=== PATIENT | female | born 1970 | race Caucasian/White ===

== ENCOUNTER 2016-09-28 18:47 | Emergency (ER) | payer MEDICAID ==
[~2016-09-28] VITALS: Ht 157.5 cm; Wt 99.8 kg
[~2016-09-28 18:47] MED LIST: BACL10TA; GLYB3TAB; LEVO75TA47; METF-312; NOR10T; SITA50TA
[2016-09-28 19:05] VITALS: BP 138/81
== END 2016-09-28 22:59 | disposition left against medical advice (07) ==
LOC: EDUNIT# 18:47 → ER 18:57
DX: F10.10 Alcohol abuse, uncomplicated (principal); Z53.21 Procedure and treatment not carried out due to patient leaving prior to being seen by health care provider
CPT/HCPCS: 82962; 93005

== ENCOUNTER 2018-06-15 18:57 | Emergency (ER) | payer MEDICAID ==
[~2018-06-15] VITALS: Ht 157.5 cm; Wt 105.7 kg
[~2018-06-15 18:57] MED LIST changes: -GLYB3TAB; +GLYB3TAB3; -METF-312; +METF-370
[2018-06-15] MEDS ORDERED: SODIUM CHLORIDE 0.9% 1,000 ML IVB ONE (19:13)
[2018-06-15 19:44] LABS: Urine Bacteria FEW /hpf (None Seen); Urine Blood Negative /uL (Negative); Urine Specific Gravity 1.029 (1.001-1.035); Urine WBC 1 /hpf (0 - 5)
[2018-06-15 19:46] LABS: Basophils # (auto) 0.1 uL; Basophils % (auto) 1.3 % (0.0-2.0); Eosinophils # (auto) 0.2 uL; Eosinophils % (auto) 1.9 % (0.0-7.0); Hematocrit 36.2 % (36.0-46.0); Hemoglobin 12.3 g/dL (12.2-16.2); Lymphocytes # (auto) 2.9 uL; Lymphocytes % (auto) 32.1 % (10.0-50.0); Mean Corpuscular Hemoglobin 32.4 pg (28.0-32.0); Mean Corpuscular Hgb Conc. 34.1 g/dL (32.0-36.0); Mean Corpuscular Volume 95.1 fL (80.0-100.0); Monocytes # (auto) 0.5 uL; Monocytes % (auto) 5.9 % (0.0-12.0); Neutrophils # (auto) 5.4 uL; Neutrophils % (auto) 58.8 % (37.0-80.0); Platelet Count (auto) 312 10^3/uL (140-450); Red Blood Cells 3.81 10^6/uL (4.0-5.20); Red Cell Distribution Width 13.4 % (11.8-14.3); White Blood Cell 9.1 10^3/uL (4.4-10.8)
[2018-06-15 19:57] LABS: INR 0.88 (0.9-1.15); Partial Thromboplastin Time 25.5 sec (23.78-33.04); Prothrombin Time 9.5 sec (9.27-12.13)
[2018-06-15 20:11] LABS: Alanine Aminotransferase 21 U/L (13-56); Albumin 3.2 g/dL (3.4-5.0); Anion Gap 6 (5-15); Aspartate Aminotransferase 13 U/L (15-37); BUN/Creatinine Ratio 16.1; Blood Urea Nitrogen 18 mg/dL (7-18); Calcium 8.5 mg/dL (8.5-10.1); Carbon Dioxide 27 mmol/L (21-32); Chloride 103 mmol/L (98-107); GFR African American 67 mL/min; GFR Non-African American 55 mL/min; Glucose 343 mg/dL (74-106); Magnesium 1.7 mg/dL (1.6-2.6); Potassium 4.2 mmol/L (3.5-5.1); Sodium 136 mmol/L (136-145)
[2018-06-15 20:14] LABS: Alkaline Phosphatase 162 U/L (45-117); Bilirubin, Total < 0.1 mg/dL (0.2-1.0); Total Protein 7.6 g/dL (6.4-8.2)
[2018-06-15] MEDS ORDERED: InsuLIN REG 1unit/0.01ml Soln (100units/ml) SC ONE (20:45)
[2018-06-15 21:30] VITALS: BP 123/78
[2018-06-15] MEDS ORDERED: HYDROcodone-ACET 5/325MG TAB PO ONE (22:15)
[2018-06-15] MEDS ORDERED: CLINDAMYCIN 600MG IV 50 ML IV ONE (22:15)
== END 2018-06-15 23:25 | disposition home or self-care (01) ==
LOC: ER 19:01
DX: E11.65 Type 2 diabetes mellitus with hyperglycemia (principal); E78.5 Hyperlipidemia, unspecified; I10 Essential (primary) hypertension; E07.89 Other specified disorders of thyroid; F17.210 Nicotine dependence, cigarettes, uncomplicated; Z98.51 Tubal ligation status
CPT/HCPCS: 36415; 71045; 80053; 81001; 82962; 83735; 84702; 85025; 85610; 85730; 94761; 96361; 96365; 96372; 99284; J1815; J3490

== ENCOUNTER 2018-06-23 13:23 | Emergency (ER) | payer MEDICAID ==
[~2018-06-23] VITALS: Ht 154.9 cm; Wt 103.4 kg
[2018-06-23 14:13] LABS: Basophils # (auto) 0.1 uL; Basophils % (auto) 0.8 % (0.0-2.0); Eosinophils # (auto) 0.1 uL; Eosinophils % (auto) 1.3 % (0.0-7.0); Hematocrit 36.4 % (36.0-46.0); Hemoglobin 12.3 g/dL (12.2-16.2); Lymphocytes # (auto) 1.8 uL; Lymphocytes % (auto) 25.5 % (10.0-50.0); Mean Corpuscular Hemoglobin 31.6 pg (28.0-32.0); Mean Corpuscular Hgb Conc. 33.8 g/dL (32.0-36.0); Mean Corpuscular Volume 93.5 fL (80.0-100.0); Monocytes # (auto) 0.3 uL; Monocytes % (auto) 4.6 % (0.0-12.0); Neutrophils # (auto) 4.9 uL; Neutrophils % (auto) 67.8 % (37.0-80.0); Platelet Count (auto) 290 10^3/uL (140-450); White Blood Cell 7.2 10^3/uL (4.4-10.8)
[2018-06-23 14:32] LABS: Albumin 3.3 g/dL (3.4-5.0); BUN/Creatinine Ratio 20.2; Calcium 8.4 mg/dL (8.5-10.1); Potassium 4.2 mmol/L (3.5-5.1)
[2018-06-23 14:36] LABS: Bilirubin, Total 0.2 mg/dL (0.2-1.0); Total Protein 7.8 g/dL (6.4-8.2)
[2018-06-23 16:25] LABS: Urine Bacteria MOD /hpf (None Seen); Urine Blood Negative /uL (Negative); Urine Hyaline Cast MOD /lpf (0 - 2); Urine Mucus FEW (None Seen); Urine Specific Gravity 1.024 (1.001-1.035); Urine WBC 11 /hpf (0 - 5)
[2018-06-23 17:08] VITALS: BP 102/78
[2018-06-23] MEDS ORDERED: cefTRIAXone 1GM/50ML D5W 50 ML IV ONE (17:15)
[2018-06-23] MEDS ORDERED: SODIUM CHLORIDE 0.9% 1,000 ML IV ONE (17:15)
[2018-06-23] MEDS ORDERED: diphenhdrAMINE HCL 50 MG/1 ML VL IV ONE (17:15)
[2018-06-23] MEDS ORDERED: ALPRAZolam 0.5 MG TAB PO ONE (17:30)
== END 2018-06-23 18:58 | disposition home or self-care (01) ==
LOC: ER 13:23
DX: N39.0 Urinary tract infection, site not specified (principal); E11.65 Type 2 diabetes mellitus with hyperglycemia; N28.9 Disorder of kidney and ureter, unspecified; E11.9 Type 2 diabetes mellitus without complications; E78.5 Hyperlipidemia, unspecified; I10 Essential (primary) hypertension; E07.89 Other specified disorders of thyroid; F17.210 Nicotine dependence, cigarettes, uncomplicated; Z98.51 Tubal ligation status
CPT/HCPCS: 36415; 80053; 81001; 82962; 85025; 96365; 99283; J0696; J7030

== ENCOUNTER 2018-08-09 12:51 | Emergency (ER) | payer MEDICAID, OTHER ==
[~2018-08-09] VITALS: Ht 180.3 cm; Wt 107.5 kg
[2018-08-09 13:12] VITALS: BP 123/91
== END 2018-08-09 15:10 | disposition home or self-care (01) ==
LOC: EDBD 12:56 → EDUNIT# 12:56 → ER 12:56
DX: R21 Rash and other nonspecific skin eruption (principal); E11.9 Type 2 diabetes mellitus without complications; E78.5 Hyperlipidemia, unspecified; Z86.39 Personal history of other endocrine, nutritional and metabolic disease
CPT/HCPCS: 82962

== ENCOUNTER 2018-10-29 13:16 | Inpatient (IN) | payer MEDICAID ==
[~2018-10-29] VITALS: Ht 154.9 cm; Wt 103.9 kg
[2018-10-29] MEDS ORDERED: SODIUM CHLORIDE 0.9% 1,000 ML IV ONE (13:41)
[2018-10-29 14:26] LABS: Basophils # (auto) 0.1 uL; Basophils % (auto) 0.8 % (0.0-2.0); Eosinophils # (auto) 0.1 uL; Eosinophils % (auto) 0.7 % (0.0-7.0); Hematocrit 37.5 % (36.0-46.0); Hemoglobin 12.9 g/dL (12.2-16.2); Lymphocytes # (auto) 2.5 uL; Lymphocytes % (auto) 28.1 % (10.0-50.0); Mean Corpuscular Hemoglobin 31.6 pg (28.0-32.0); Mean Corpuscular Hgb Conc. 34.5 g/dL (32.0-36.0); Mean Corpuscular Volume 91.5 fL (80.0-100.0); Monocytes # (auto) 0.5 uL; Monocytes % (auto) 5.9 % (0.0-12.0); Neutrophils # (auto) 5.7 uL; Neutrophils % (auto) 64.5 % (37.0-80.0); Platelet Count (auto) 258 10^3/uL (140-450); Red Cell Distribution Width 14.4 % (11.8-14.3); White Blood Cell 8.9 10^3/uL (4.4-10.8)
[2018-10-29 14:32] LABS: INR 0.9 (0.9-1.15); Partial Thromboplastin Time 23.6 sec (23.78-33.04); Prothrombin Time 9.7 sec (9.27-12.13)
[2018-10-29 14:37] LABS: Albumin 3.5 g/dL (3.4-5.0); Calcium 8.8 mg/dL (8.5-10.1); Potassium 3.9 mmol/L (3.5-5.1)
[2018-10-29 14:38] LABS: Magnesium 1.8 mg/dL (1.6-2.6)
[2018-10-29 14:39] LABS: Bilirubin, Total 0.4 mg/dL (0.2-1.0); Total Protein 7.6 g/dL (6.4-8.2)
[2018-10-29] MEDS ORDERED: SODIUM CHLORIDE 0.9% 2,000 ML IV ONE (18:00)
[2018-10-29] MEDS ORDERED: InsuLIN REG 1unit/0.01ml Soln (100units/ml) IV ONE (18:15)
[2018-10-29] MEDS ORDERED: NITROGLYCERIN 0.4 MG SL TAB SL PRN (18:15)
[2018-10-29] MEDS ORDERED: ACETAMINOPHEN 500 MG TAB PO PRN (18:15)
[2018-10-29] MEDS ORDERED: DEXTROSE (50%) 50ML SYRG IV PRN (18:15)
[2018-10-29] MEDS ORDERED: LABETALOL HCL 5 MG/ML ML 20ML VIAL IV PRN (18:15)
[2018-10-29] MEDS ORDERED: MORPHINE SULF INJ 2 MG/ML SYRINGE 1ML IV PRN (18:15)
[2018-10-29] MEDS: SOD CHL 0.45% WITH 20MEQ KCL 1,000 ML IV SCH (18:56)
[2018-10-29] MEDS: MORPHINE SULF INJ 2 MG/ML SYRINGE 1ML IV PRN (19:32)
[2018-10-29] MEDS: ONDANSETRON HCL 4 MG/2 ML VIAL IV PRN (19:32)
[2018-10-29] MEDS: ACCU-CHEK COMFORT CURVE STRIP VI SCH ×2 (20:17→23:43)
[2018-10-29 20:20] VITALS: BP 111/73
[2018-10-29] MEDS: InsuLIN REG 1unit/0.01ml Soln (100units/ml) SC SCH ×2 (20:20→23:43)
[2018-10-29] MEDS: ALPRAZolam 0.25 MG TAB PO PRN (21:50)
[2018-10-29 22:00] VITALS: BP 111/75
[2018-10-29] MEDS ORDERED: LORA2TAB10 PO (23:12)
[2018-10-30] MEDS: SOD CHL 0.45% 1,000 ML IV SCH ×2 (02:00→08:00)
[2018-10-30] MEDS: MORPHINE SULF INJ 2 MG/ML SYRINGE 1ML IV PRN ×3 (02:15→15:50)
[2018-10-30] MEDS: SOD CHL 0.45% WITH 20MEQ KCL 1,000 ML IV SCH (02:19)
[2018-10-30] MEDS: HYDROcodone-ACET 5/325MG TAB PO PRN ×3 (03:03→20:56)
[2018-10-30] MEDS: ACCU-CHEK COMFORT CURVE STRIP VI SCH ×5 (03:14→21:10)
[2018-10-30] MEDS: InsuLIN REG 1unit/0.01ml Soln (100units/ml) SC SCH ×5 (03:14→21:11)
[2018-10-30 05:05] VITALS: BP 98/66
[2018-10-30] MEDS: INSULIN LANTUS (GLARGINE) 1 /0.01ml (100units/ml) SC SCH (06:12)
[2018-10-30 07:00] LABS: Basophils # (auto) 0.1 uL; Basophils % (auto) 0.6 % (0.0-2.0); Eosinophils # (auto) 0.1 uL; Eosinophils % (auto) 0.8 % (0.0-7.0); Hematocrit 32.9 % (36.0-46.0); Hemoglobin 11.5 g/dL (12.2-16.2); Lymphocytes # (auto) 1.9 uL; Lymphocytes % (auto) 21.5 % (10.0-50.0); Mean Corpuscular Hemoglobin 32.1 pg (28.0-32.0); Mean Corpuscular Volume 91.7 fL (80.0-100.0); Monocytes # (auto) 0.4 uL; Monocytes % (auto) 4.7 % (0.0-12.0); Neutrophils # (auto) 6.5 uL; Neutrophils % (auto) 72.4 % (37.0-80.0); Nucleated Red Blood Cells % 0.1 %; Platelet Count (auto) 210 10^3/uL (140-450); Red Blood Cells 3.59 10^6/uL (4.0-5.20); Red Cell Distribution Width 14.3 % (11.8-14.3); White Blood Cell 8.9 10^3/uL (4.4-10.8)
[2018-10-30 07:15] LABS: Albumin 2.9 g/dL (3.4-5.0); BUN/Creatinine Ratio 32.7; Calcium 7.8 mg/dL (8.5-10.1); Potassium 4.3 mmol/L (3.5-5.1)
[2018-10-30 07:19] LABS: Bilirubin, Total 0.2 mg/dL (0.2-1.0); Total Protein 6.2 g/dL (6.4-8.2)
[2018-10-30 08:17] VITALS: BP 133/70
[2018-10-30] MEDS: NICOTINE 21MG/24 HR TOPICAL PATCH TD SCH (09:36)
[2018-10-30] MEDS: amLODIPine BESYLATE 5 MG TAB PO SCH (09:36)
[2018-10-30 12:24] VITALS: BP 101/79
[2018-10-30 16:43] VITALS: BP 116/76
[2018-10-30] MEDS: Glucerna Carbsteady SHAKE Vanilla 8oz PO SCH (18:38)
[2018-10-30] MEDS: ONDANSETRON HCL 4 MG/2 ML VIAL IV PRN (20:53)
[2018-10-30 22:00] VITALS: BP 94/68
[2018-10-30] MEDS: ALPRAZolam 0.25 MG TAB PO PRN (22:39)
[2018-10-31] MEDS: MORPHINE SULF INJ 2 MG/ML SYRINGE 1ML IV PRN ×2 (01:11→12:15)
[2018-10-31] MEDS: InsuLIN REG 1unit/0.01ml Soln (100units/ml) SC SCH ×4 (01:12→12:07)
[2018-10-31] MEDS: ACCU-CHEK COMFORT CURVE STRIP VI SCH ×4 (01:12→12:06)
[2018-10-31 04:51] VITALS: BP 103/73
[2018-10-31 06:28] LABS: Basophils # (auto) 0 uL; Basophils % (auto) 0.8 % (0.0-2.0); Eosinophils # (auto) 0.1 uL; Eosinophils % (auto) 1.2 % (0.0-7.0); Hematocrit 32.9 % (36.0-46.0); Hemoglobin 11.6 g/dL (12.2-16.2); Lymphocytes # (auto) 2.2 uL; Lymphocytes % (auto) 37.2 % (10.0-50.0); Mean Corpuscular Hemoglobin 32.5 pg (28.0-32.0); Mean Corpuscular Hgb Conc. 35.2 g/dL (32.0-36.0); Mean Corpuscular Volume 92.5 fL (80.0-100.0); Monocytes # (auto) 0.4 uL; Monocytes % (auto) 6.2 % (0.0-12.0); Neutrophils # (auto) 3.2 uL; Neutrophils % (auto) 54.6 % (37.0-80.0); Platelet Count (auto) 206 10^3/uL (140-450); Red Blood Cells 3.55 10^6/uL (4.0-5.20); Red Cell Distribution Width 14.1 % (11.8-14.3); White Blood Cell 5.9 10^3/uL (4.4-10.8)
[2018-10-31 06:29] LABS: Albumin 2.9 g/dL (3.4-5.0); Calcium 8.3 mg/dL (8.5-10.1); Potassium 3.5 mmol/L (3.5-5.1)
[2018-10-31 06:31] LABS: BUN/Creatinine Ratio 24.7
[2018-10-31 06:34] LABS: Bilirubin, Total 0.2 mg/dL (0.2-1.0); Total Protein 6.3 g/dL (6.4-8.2)
[2018-10-31] MEDS: INSULIN LANTUS (GLARGINE) 1 /0.01ml (100units/ml) SC SCH (06:55)
[2018-10-31 08:00] VITALS: BP 133/70
[2018-10-31] MEDS: Glucerna Carbsteady SHAKE Vanilla 8oz PO SCH ×2 (08:00→12:07)
[2018-10-31 09:00] VITALS: BP 106/67
[2018-10-31] MEDS: amLODIPine BESYLATE 5 MG TAB PO SCH (09:38)
[2018-10-31] MEDS: NICOTINE 21MG/24 HR TOPICAL PATCH TD SCH (09:39)
[2018-10-31] MEDS: SOD CHL 0.45% 1,000 ML IV SCH (10:40)
[2018-10-31 13:16] VITALS: BP 103/73
[2018-10-31 14:03] VITALS: BP 103/73
== END 2018-10-31 14:30 | disposition home or self-care (01) | DRG 469 ==
LOC: ER 13:20 → OVERFLOW 18:15 → WEST WING 20:06
PROVIDERS: ADMIT Nurse Practitioner Acute Care; ATTEND Internal Medicine
DX: N17.0 Acute kidney failure with tubular necrosis (principal); E11.40 Type 2 diabetes mellitus with diabetic neuropathy, unspecified; E11.21 Type 2 diabetes mellitus with diabetic nephropathy; E44.0 Moderate protein-calorie malnutrition; E11.65 Type 2 diabetes mellitus with hyperglycemia; E86.0 Dehydration; N18.3 Chronic kidney disease, stage 3 (moderate); Z68.41 Body mass index [BMI] 40.0-44.9, adult; E11.22 Type 2 diabetes mellitus with diabetic chronic kidney disease; J44.9 Chronic obstructive pulmonary disease, unspecified; I12.9 Hypertensive chronic kidney disease with stage 1 through stage 4 chronic kidney disease, or unspecified chronic kidney disease; E66.9 Obesity, unspecified; F41.9 Anxiety disorder, unspecified; E03.9 Hypothyroidism, unspecified; F17.210 Nicotine dependence, cigarettes, uncomplicated; Z79.84 Long term (current) use of oral hypoglycemic drugs; M54.5 Low back pain; G89.29 Other chronic pain; Z79.891 Long term (current) use of opiate analgesic; Z83.3 Family history of diabetes mellitus; Z91.14 Patient's other noncompliance with medication regimen
CPT/HCPCS: 36415; 71046; 80053; 80061; 82010; 82962; 83036; 83735; 84443; 84484; 85025; 85610; 85730; 93005; 94761; 96361; 96374; 96375; G0378; J1815; J2405

== ENCOUNTER 2018-11-02 16:58 | Emergency (ER) | payer MEDICAID ==
[~2018-11-02] VITALS: Ht 154.9 cm; Wt 99.8 kg
[~2018-11-02 16:58] MED LIST changes: +LORA2TAB10 PO; -SITA50TA
[2018-11-02 17:12] VITALS: BP 116/81
== END 2018-11-02 18:04 | disposition home or self-care (01) ==
LOC: ER 16:58
DX: I82.611 Acute embolism and thrombosis of superficial veins of right upper extremity (principal); E11.9 Type 2 diabetes mellitus without complications; E78.5 Hyperlipidemia, unspecified; E07.9 Disorder of thyroid, unspecified; F17.210 Nicotine dependence, cigarettes, uncomplicated; Z79.84 Long term (current) use of oral hypoglycemic drugs

== ENCOUNTER 2019-01-07 12:16 | Emergency (ER) | payer MEDICAID ==
[~2019-01-07] VITALS: Ht 154.9 cm; Wt 102.1 kg
[2019-01-07 13:25] LABS: Urine Bacteria NONE SEEN /hpf (None Seen); Urine Blood 2+ /uL (Negative); Urine Specific Gravity 1.027 (1.001-1.035); Urine WBC 3 /hpf (0 - 5)
[2019-01-07 13:56] LABS: Basophils # (auto) 0 uL; Basophils % (auto) 0.6 % (0.0-2.0); Eosinophils # (auto) 0.1 uL; Eosinophils % (auto) 1.2 % (0.0-7.0); Hematocrit 32.1 % (36.0-46.0); Lymphocytes # (auto) 1.8 uL; Lymphocytes % (auto) 22.6 % (10.0-50.0); Mean Corpuscular Hemoglobin 32.3 pg (28.0-32.0); Mean Corpuscular Hgb Conc. 34.2 g/dL (32.0-36.0); Mean Corpuscular Volume 94.4 fL (80.0-100.0); Monocytes # (auto) 0.4 uL; Monocytes % (auto) 5.1 % (0.0-12.0); Neutrophils # (auto) 5.7 uL; Neutrophils % (auto) 70.5 % (37.0-80.0); Platelet Count (auto) 255 10^3/uL (140-450); Red Cell Distribution Width 14.7 % (11.8-14.3); White Blood Cell 8.1 10^3/uL (4.4-10.8)
[2019-01-07 14:13] LABS: Albumin 3.3 g/dL (3.4-5.0); Calcium 8.1 mg/dL (8.5-10.1); Potassium 4.8 mmol/L (3.5-5.1)
[2019-01-07 14:18] LABS: Bilirubin, Total 0.2 mg/dL (0.2-1.0); Total Protein 7.3 g/dL (6.4-8.2)
[2019-01-07 17:31] VITALS: BP 116/74
== END 2019-01-07 17:36 | disposition home or self-care (01) ==
LOC: ER 12:18
DX: N39.0 Urinary tract infection, site not specified (principal); R31.9 Hematuria, unspecified; E11.22 Type 2 diabetes mellitus with diabetic chronic kidney disease; I12.9 Hypertensive chronic kidney disease with stage 1 through stage 4 chronic kidney disease, or unspecified chronic kidney disease; N18.9 Chronic kidney disease, unspecified; E78.5 Hyperlipidemia, unspecified; F17.210 Nicotine dependence, cigarettes, uncomplicated; Z79.899 Other long term (current) drug therapy; Z79.84 Long term (current) use of oral hypoglycemic drugs; Z79.1 Long term (current) use of non-steroidal anti-inflammatories (NSAID)
CPT/HCPCS: 36415; 74176; 80053; 81001; 85025

== ENCOUNTER 2019-03-02 13:18 | Inpatient (IN) | payer MEDICAID ==
[~2019-03-02] VITALS: Ht 157.5 cm; Wt 100.9 kg
[2019-03-02 14:29] LABS: Alanine Aminotransferase 22 U/L (13-56); Albumin 3.8 g/dL (3.4-5.0); Anion Gap 15 (5-15); Aspartate Aminotransferase 12 U/L (15-37); Basophils # (auto) 0.1 uL; Basophils % (auto) 0.4 % (0.0-2.0); Blood Urea Nitrogen 75 mg/dL (7-18); Calcium 9.1 mg/dL (8.5-10.1); Carbon Dioxide 24 mmol/L (21-32); Chloride 99 mmol/L (98-107); Eosinophils # (auto) 0.1 uL; Eosinophils % (auto) 0.8 % (0.0-7.0); Glucose 72 mg/dL (74-106); Hematocrit 37.4 % (36.0-46.0); Hemoglobin 12.4 g/dL (12.2-16.2); Lymphocytes # (auto) 3.8 uL; Lymphocytes % (auto) 25.9 % (10.0-50.0); Magnesium 2.1 mg/dL (1.6-2.6); Mean Corpuscular Hemoglobin 31.2 pg (28.0-32.0); Mean Corpuscular Hgb Conc. 33.3 g/dL (32.0-36.0); Mean Corpuscular Volume 93.7 fL (80.0-100.0); Monocytes # (auto) 0.8 uL; Monocytes % (auto) 5.3 % (0.0-12.0); Neutrophils % (auto) 67.6 % (37.0-80.0); Platelet Count (auto) 309 10^3/uL (140-450); Red Blood Cells 3.99 10^6/uL (4.0-5.20); Red Cell Distribution Width 13.7 % (11.8-14.3); Sodium 138 mmol/L (136-145); White Blood Cell 14.7 10^3/uL (4.4-10.8)
[2019-03-02 14:34] LABS: Alkaline Phosphatase 119 U/L (45-117); BUN/Creatinine Ratio 11.9; Bilirubin, Total 0.3 mg/dL (0.2-1.0); GFR African American 9 mL/min; GFR Non-African American 8 mL/min; Total Protein 8.5 g/dL (6.4-8.2)
[2019-03-02] MEDS ORDERED: SODIUM CHLORIDE 0.9% 1,000 ML IV ONE (16:40)
[2019-03-02] MEDS ORDERED: SODIUM CHLORIDE 0.9% 500 ML IV ONE (16:40)
[2019-03-02] MEDS ORDERED: LORazepam 2MG/ML-1ML VIAL IV ONE (19:15)
[2019-03-02 19:26] LABS: Magnesium 1.8 mg/dL (1.6-2.6)
[2019-03-02] MEDS ORDERED: MORPHINE SULFATE 4 MG/ML SYR/VIAL IV ONE (20:30)
[2019-03-02] MEDS ORDERED: ONDANSETRON HCL 4 MG/2 ML VIAL IV ONE (20:30)
[2019-03-02 22:21] LABS: Urine Bacteria FEW /hpf (None Seen); Urine Blood Negative /uL (Negative); Urine Specific Gravity 1.021 (1.001-1.035); Urine WBC 6 /hpf (0 - 5)
[2019-03-02] MEDS ORDERED: ACETAMINOPHEN 500 MG TAB PO PRN (23:00)
[2019-03-02] MEDS ORDERED: ONDANSETRON HCL 4 MG/2 ML VIAL IV PRN (23:00)
[2019-03-02] MEDS ORDERED: BACLOFEN 10 MG TAB PO PRN (23:00)
[2019-03-02 23:45] VITALS: BP 92/68
--- NOTE | 2019-03-03 | NUR ---
MS admit from [facility] admitted to tele/MS. Patient oriented to staff, unit, room, bed, and unit policies regarding patient care and visiting hours. Patient weighed by bed scale and encouraged to call if they need something. All questions and concerns addressed, patient verbalized understanding. Rashes noted to BUE and shoulders.
[2019-03-03 00:15] VITALS: BP 92/68
[2019-03-03] MEDS: HYDROcodone-ACET 5/325MG TAB PO PRN ×3 (00:32→22:38)
[2019-03-03] MEDS: LORazepam 0.5 MG TAB PO PRN ×3 (00:33→21:14)
[2019-03-03 05:00] VITALS: BP 134/86
[2019-03-03] MEDS: LEVOTHYROXINE SODIUM 25 MCG TAB PO SCH (05:47)
[2019-03-03 06:09] LABS: Basophils # (auto) 0 uL; Basophils % (auto) 0.5 % (0.0-2.0); Eosinophils # (auto) 0.1 uL; Eosinophils % (auto) 0.9 % (0.0-7.0); Hematocrit 30.2 % (36.0-46.0); Hemoglobin 10.5 g/dL (12.2-16.2); Lymphocytes % (auto) 21.3 % (10.0-50.0); Mean Corpuscular Hemoglobin 32.3 pg (28.0-32.0); Mean Corpuscular Hgb Conc. 34.8 g/dL (32.0-36.0); Mean Corpuscular Volume 92.8 fL (80.0-100.0); Monocytes # (auto) 0.6 uL; Monocytes % (auto) 6.3 % (0.0-12.0); Neutrophils # (auto) 6.6 uL; Platelet Count (auto) 225 10^3/uL (140-450); Red Blood Cells 3.25 10^6/uL (4.0-5.20); Red Cell Distribution Width 13.6 % (11.8-14.3); White Blood Cell 9.3 10^3/uL (4.4-10.8)
[2019-03-03] MEDS ORDERED: DEXTROSE (50%) 50ML SYRG IV PRN (06:15)
[2019-03-03 06:23] LABS: BUN/Creatinine Ratio 12.3; Calcium 8.1 mg/dL (8.5-10.1); Potassium 4.5 mmol/L (3.5-5.1)
[2019-03-03] MEDS: SODIUM CHLORIDE 0.9% 1,000 ML IV SCH ×3 (06:33→21:00)
[2019-03-03] MEDS: InsuLIN REG 1unit/0.01ml Soln (100units/ml) SC SCH ×4 (06:39→22:38)
[2019-03-03] MEDS: ACCU-CHEK COMFORT CURVE STRIP VI SCH ×4 (06:39→22:38)
--- NOTE | 2019-03-03 06:59 | NUR ---
Critical lab BUN 83, paged Hospitalist.
[2019-03-03] MEDS: cefTRIAXone 1GM/50ML D5W 50 ML IV SCH (08:10)
[2019-03-03 09:00] VITALS: BP 107/68
[2019-03-03 13:00] VITALS: BP 105/66
--- NOTE | 2019-03-03 16:00 | NUR ---
OFF UNIT FOR CT OF ABD/PELVIS
[2019-03-03 17:00] VITALS: BP 105/70
--- NOTE | 2019-03-03 19:30 | NUR ---
Opening Shift Note Assumed care of patient, awake and alert x4. Patient denies pain at this time. No S/S of distress/SOB noted. Instructed on plan of care and to call for assistance as needed. Bed is locked in lowest position, side rails x 2 are up, and call light is within reach.
--- NOTE | 2019-03-03 20:30 | NUR ---
IV REMOVAL/INSERTION IV DC'd to left hand with clean sterile technique, catheter fully intact. Pressure dressing applied to site. Patient tolerated well. IV insertion IV access obtained, via clean sterile technique by inserting 22 gauge catheter at right forearm after 2 attempts. IV secured properly. IV flushing well with no resistance. Patient denies pain or burning sensation at site. Patient tolerated well.
[2019-03-03 22:00] VITALS: BP 109/67
[2019-03-04] MEDS: TEMAZEPAM 15 MG CAP PO PRN ×2 (00:38→22:44)
[2019-03-04 04:50] VITALS: BP 108/61
[2019-03-04] MEDS: LEVOTHYROXINE SODIUM 25 MCG TAB PO SCH (06:33)
[2019-03-04 06:55] LABS: Basophils # (auto) 0 uL; Basophils % (auto) 0.6 % (0.0-2.0); Eosinophils # (auto) 0.2 uL; Eosinophils % (auto) 2.3 % (0.0-7.0); Hematocrit 32.4 % (36.0-46.0); Hemoglobin 10.6 g/dL (12.2-16.2); Lymphocytes # (auto) 1.9 uL; Lymphocytes % (auto) 28.4 % (10.0-50.0); Mean Corpuscular Hemoglobin 31.8 pg (28.0-32.0); Mean Corpuscular Hgb Conc. 32.7 g/dL (32.0-36.0); Mean Corpuscular Volume 97.2 fL (80.0-100.0); Monocytes # (auto) 0.4 uL; Neutrophils # (auto) 4.1 uL; Neutrophils % (auto) 62.7 % (37.0-80.0); Nucleated Red Blood Cells % 0.2 %; Platelet Count (auto) 189 10^3/uL (140-450); Red Blood Cells 3.33 10^6/uL (4.0-5.20); Red Cell Distribution Width 13.7 % (11.8-14.3); White Blood Cell 6.6 10^3/uL (4.4-10.8)
[2019-03-04] MEDS: InsuLIN REG 1unit/0.01ml Soln (100units/ml) SC SCH ×4 (07:00→22:00)
[2019-03-04 07:12] LABS: BUN/Creatinine Ratio 24.8; Calcium 7.7 mg/dL (8.5-10.1); Potassium 4.7 mmol/L (3.5-5.1)
[2019-03-04] MEDS: ACCU-CHEK COMFORT CURVE STRIP VI SCH ×4 (07:40→22:58)
[2019-03-04 08:54] VITALS: BP 112/75
[2019-03-04] MEDS: cefTRIAXone 1GM/50ML D5W 50 ML IV SCH (10:01)
[2019-03-04] MEDS: HYDROcodone-ACET 5/325MG TAB PO PRN ×3 (12:02→22:14)
[2019-03-04 13:00] VITALS: BP 116/87
--- NOTE | 2019-03-04 14:18 | NUR ---
off unit for HIDA scan
[2019-03-04] MEDS ORDERED: MORPHINE SULF INJ 2 MG/ML SYRINGE 1ML IV ONE ×3 (15:30→16:00)
[2019-03-04] MEDS ORDERED: MORPHINE SULFATE 4 MG/ML SYR/VIAL IV ONE (15:30)
[2019-03-04] MEDS ORDERED: MORPHINE SULF INJ 2 MG/ML SYRINGE 1ML IM ONE (16:00)
--- NOTE | 2019-03-04 16:30 | NUR ---
BACK FROM HIDA SCAN
[2019-03-04] MEDS: SODIUM CHLORIDE 0.9% 1,000 ML IV SCH (16:56)
[2019-03-04 17:00] VITALS: BP 120/91
[2019-03-04] MEDS: LORazepam 0.5 MG TAB PO PRN (17:56)
[2019-03-04 21:00] VITALS: BP 136/78
[2019-03-05 05:00] VITALS: BP 116/76
[2019-03-05] MEDS: LEVOTHYROXINE SODIUM 25 MCG TAB PO SCH (06:26)
[2019-03-05] MEDS: HYDROcodone-ACET 5/325MG TAB PO PRN ×2 (06:32→10:39)
[2019-03-05] MEDS: SODIUM CHLORIDE 0.9% 1,000 ML IV SCH ×2 (06:55→09:09)
[2019-03-05] MEDS: InsuLIN REG 1unit/0.01ml Soln (100units/ml) SC SCH ×4 (06:55→21:35)
[2019-03-05] MEDS: ACCU-CHEK COMFORT CURVE STRIP VI SCH ×4 (06:55→21:35)
[2019-03-05 07:47] LABS: BUN/Creatinine Ratio 25.6; Calcium 8.4 mg/dL (8.5-10.1); Potassium 4.9 mmol/L (3.5-5.1)
[2019-03-05 09:00] VITALS: BP 100/70
[2019-03-05] MEDS: cefTRIAXone 1GM/50ML D5W 50 ML IV SCH (09:07)
[2019-03-05] MEDS: LACTULOSE 20Gm/30ML SOLN PO SCH (09:18)
[2019-03-05] MEDS: LORazepam 0.5 MG TAB PO PRN ×2 (09:18→19:38)
[2019-03-05 11:26] LABS: INR < 0.93 (0.9-1.15); Partial Thromboplastin Time 25.8 sec (23.64-32.05)
[2019-03-05 13:00] VITALS: BP 114/79
--- NOTE | 2019-03-05 15:32 | NUR ---
Nutrition Assessment Notes please see attached link for complete assessment Est. Needs ABW (77 kg): 5300-6491 kcal (17-20kcal/kgBW), 62-77 gms pro (0.8-1.0 gms/kgBW r/t elev RFT). Will continue to monitor pertinent labs and reassess nutrient need prn Addendum: 03/05/19 at [address] Amended: Links added.
[2019-03-05 17:00] VITALS: BP 96/70
--- NOTE | 2019-03-05 20:30 | NUR ---
UNSUCCESSFUL IV ATTEMPT 2 unsuccessful IV attempts, after attempting to insert IV by PONCE Salgado.
[2019-03-05] MEDS: MORPHINE SULF INJ 2 MG/ML SYRINGE 1ML IV PRN (21:35)
[2019-03-05 22:00] VITALS: BP 116/74
[2019-03-05] MEDS: TEMAZEPAM 15 MG CAP PO PRN (23:18)
--- NOTE | 2019-03-05 23:30 | NUR ---
UNSUCCESSFUL IV INSERTION RN Dann attempted to insert an IV twice, both times were unsuccessful.
--- NOTE | 2019-03-06 00:24 | NUR ---
HOSPITALIST PAGED RE: PAIN MEDICATIONS Hospitalist paged regarding pain medications. Patient has a history of chronic back pain. Patient states she takes Percocet 10/325mg PRN at home for chronic back pain. Patient is complaining of pain to mid back (04/02), patient has already been medicated for pain. Awaiting call back.
--- NOTE | 2019-03-06 01:00 | NUR ---
UNSUCCESSFUL IV INSERTION PONCE Garcia attempted to insert an IV once, unsuccessful attempt.
[2019-03-06] MEDS: HYDROcodone-ACET 7.5/325MG TAB PO PRN ×3 (01:29→23:15)
[2019-03-06] MEDS: LORazepam 0.5 MG TAB PO PRN ×2 (04:47→17:13)
[2019-03-06] MEDS: MORPHINE SULF INJ 2 MG/ML SYRINGE 1ML IV PRN ×3 (04:48→18:58)
[2019-03-06 05:00] VITALS: BP 100/77
--- NOTE | 2019-03-06 05:52 | NUR ---
IV insertion IV access obtained, via clean sterile technique by inserting 22 gauge catheter at left hand after 1 attempt. IV secured properly. No trauma to site. Patient tolerated well.
--- NOTE | 2019-03-06 06:10 | NUR ---
CHG BATH COMPLETED CHG bath completed.
[2019-03-06] MEDS: LEVOTHYROXINE SODIUM 25 MCG TAB PO SCH (06:28)
[2019-03-06] MEDS: D5W/SOD CHL 0.45% 1,000 ML IV SCH ×2 (06:30)
[2019-03-06] MEDS: InsuLIN REG 1unit/0.01ml Soln (100units/ml) SC SCH ×4 (06:36→22:05)
[2019-03-06] MEDS: ACCU-CHEK COMFORT CURVE STRIP VI SCH ×4 (06:36→22:05)
--- NOTE | 2019-03-06 07:12 | NUR ---
Opening Shift Note Assumed care of patient, awake and alert. No S/S of distress/SOB or pain. Instructed on POC and to call for assist PRN, will continue to monitor for changes Q1hr and PRN.
[2019-03-06 08:00] LABS: Basophils # (auto) 0.1 uL; Basophils % (auto) 0.7 % (0.0-2.0); Eosinophils # (auto) 0.1 uL; Eosinophils % (auto) 1.4 % (0.0-7.0); Hematocrit 35.3 % (36.0-46.0); Lymphocytes # (auto) 2.6 uL; Lymphocytes % (auto) 31.5 % (10.0-50.0); Mean Corpuscular Hemoglobin 31.7 pg (28.0-32.0); Mean Corpuscular Hgb Conc. 33.9 g/dL (32.0-36.0); Mean Corpuscular Volume 93.5 fL (80.0-100.0); Monocytes # (auto) 0.5 uL; Monocytes % (auto) 6.1 % (0.0-12.0); Neutrophils # (auto) 4.9 uL; Neutrophils % (auto) 60.3 % (37.0-80.0); Platelet Count (auto) 274 10^3/uL (140-450); Red Blood Cells 3.78 10^6/uL (4.0-5.20); Red Cell Distribution Width 13.6 % (11.8-14.3); White Blood Cell 8.2 10^3/uL (4.4-10.8)
[2019-03-06 08:13] LABS: Albumin 3.4 g/dL (3.4-5.0); BUN/Creatinine Ratio 14.9; Calcium 8.9 mg/dL (8.5-10.1); Potassium 4.5 mmol/L (3.5-5.1)
[2019-03-06 08:15] LABS: Bilirubin, Total 0.2 mg/dL (0.2-1.0); Total Protein 7.8 g/dL (6.4-8.2)
[2019-03-06] MEDS: cefTRIAXone 1GM/50ML D5W 50 ML IV SCH (08:52)
[2019-03-06 09:00] VITALS: BP 113/76
[2019-03-06] MEDS: LACTULOSE 20Gm/30ML SOLN PO SCH (09:05)
[2019-03-06] MEDS ORDERED: fentaNYL CITRATE 100 MCG/2 ML VL ONE (10:11)
[2019-03-06] MEDS ORDERED: HYDROmorphone HCL 2 MG/ML VL ONE (10:11)
[2019-03-06] MEDS ORDERED: MIDAZOLAM HCL 1MG/1ML-2 ML VIAL ONE (10:12)
[2019-03-06 12:00] VITALS: BP 128/84
--- NOTE | 2019-03-06 15:33 | NUR ---
Spoke with OR. Dr. Guerrero unable to operate tonight due to emergency surgery. NPO after midnight and patient is to remain on clear liquids.
[2019-03-06 17:00] VITALS: BP 105/72
[2019-03-06 18:45] VITALS: BP 105/79
--- NOTE | 2019-03-06 19:23 | NUR ---
Change of shift given to fast food shift lead RN. No distress noted.
--- NOTE | 2019-03-06 19:30 | NUR ---
Opening Shift Note Assumed care of patient, awake and alert, ambulatory. No S/S of distress/SOB. Noted rashes on upper chest. Strict isolation precaution maintained Instructed on POC and to be NPO after MN, patient verbalized understanding. Instructed to call for assist as needed, call light within reach, will continue to monitor for changes Q1hr and PRN.
[2019-03-06 22:00] VITALS: BP 107/77
[2019-03-06] MEDS: TEMAZEPAM 15 MG CAP PO PRN (22:05)
[2019-03-07] MEDS: MORPHINE SULF INJ 2 MG/ML SYRINGE 1ML IV PRN ×2 (05:34→20:34)
[2019-03-07 05:51] VITALS: BP 100/65
[2019-03-07] MEDS: ACCU-CHEK COMFORT CURVE STRIP VI SCH ×4 (06:36→22:06)
[2019-03-07] MEDS: InsuLIN REG 1unit/0.01ml Soln (100units/ml) SC SCH ×4 (06:36→22:06)
[2019-03-07] MEDS: LEVOTHYROXINE SODIUM 25 MCG TAB PO SCH (06:36)
[2019-03-07 09:00] VITALS: BP 104/75
[2019-03-07] MEDS: LACTULOSE 20Gm/30ML SOLN PO SCH (09:49)
[2019-03-07] MEDS: cefTRIAXone 1GM/50ML D5W 50 ML IV SCH (09:52)
[2019-03-07] MEDS ORDERED: ceFAZolin 1GM/50ML 50 ML IV ONE (11:57)
[2019-03-07 13:00] VITALS: BP 130/74
[2019-03-07] MEDS ORDERED: HYDROmorphone HCL 2 MG/ML VL ONE (13:21)
[2019-03-07] MEDS ORDERED: fentaNYL CITRATE 100 MCG/2 ML VL ONE (13:21)
[2019-03-07] MEDS ORDERED: MIDAZOLAM HCL 1MG/1ML-2 ML VIAL ONE (13:22)
[2019-03-07] MEDS ORDERED: PHENYLEPHRINE HCL 10 MG/ML VL IV ONE (13:34)
[2019-03-07] MEDS ORDERED: GLYCOPYRROLATE 0.2 MG/ML 1ML VIAL IV ONE (13:34)
[2019-03-07] MEDS ORDERED: ROCURONIUM 10MG/ML 10ML VIAL IV ONE ×2 (13:34→14:09)
[2019-03-07] MEDS ORDERED: METOCLOPRAMIDE HCL 5MG/ml INJ 2ml VIAL IV ONE (13:34)
[2019-03-07] MEDS ORDERED: ePHEDrine SULFATE 50 MG/ML AMP IV ONE (13:34)
[2019-03-07] MEDS ORDERED: NEOSTIGMINE 1 MG/ML INJ (10mg/10ML VIAL) IV ONE (13:34)
[2019-03-07] MEDS ORDERED: PROPOFOL 10 MG/ML 20 ML IV ONE (13:34)
[2019-03-07] MEDS ORDERED: DexAMETHasone SOD PHOS 10MG/1ML VIAL INJ IV ONE (13:34)
[2019-03-07] MEDS ORDERED: SUCCINYLCHOLINE CHLORIDE 20 MG/ML 10ML VIAL IV ONE (13:34)
[2019-03-07] MEDS ORDERED: KETOROLAC TROMETH 30 MG/ML 1ML VIAL IV ONE (13:34)
[2019-03-07] MEDS ORDERED: ACCU-CHEK COMFORT CURVE STRIP VI ONE (14:15)
[2019-03-07] MEDS ORDERED: ONDANSETRON HCL 4 MG/2 ML VIAL IV PRN (14:15)
[2019-03-07] MEDS ORDERED: HYDROmorphone HCL 2 MG/ML VL IV PRN (14:15)
[2019-03-07] MEDS ORDERED: fentaNYL CITRATE 100 MCG/2 ML VL IV PRN (14:15)
[2019-03-07] MEDS ORDERED: METOCLOPRAMIDE HCL 5MG/ml INJ 2ml VIAL IV PRN (14:15)
--- NOTE | 2019-03-07 14:25 | NUR ---
Nutrition consult/Follow-up Notes Wt. 99.6 kg Pt. previously on clear liquid diet yesterday and was tolerating well with PO intake 100% x 2 meals with minimal GI distress. NPO today for medical procedure. Est. Needs (based on previous assessment) 1540 kcal (17-20 kcal/kg ABW 77 kg)-ongoing 77 g protein (0.8-1.0 g/kg-adult maintenance)-ongoing Labs: H/H 12L/35.5L Skin: Faustino 22 GI: BM x 1 today PES: Altered nutrition related lab values r/t current chronic medical condition AEB elev BUN, Hypocalcemia, Hyperglycemia (ongoing) Decreased nutrient needs r/t adiposity AEB pt.s high BMI 41.9 (ongoing) Plan of care: Will continue to monitor NPO status, PO diet intake/tolerance, skin status, pertinent labs and weight trend. F/u in 2-3 days. Recommendations: 1) When medically stable and is able to tolerate PO diet, advance diet to renal standard/[facility] for history of CKD and DM.
[2019-03-07] MEDS ORDERED: ACETAMINOPHEN IV 1000 MG/100ML (10MG/ML) IV ONE (15:50)
[2019-03-07] MEDS ORDERED: ACETAMINOPHEN IV 100 ML IV ONE (15:52)
[2019-03-07] MEDS: D5W/SOD CHL 0.45% 1,000 ML IV SCH (16:09)
[2019-03-07 17:29] VITALS: BP 115/74
[2019-03-07] MEDS: HYDROcodone-ACET 7.5/325MG TAB PO PRN (17:36)
--- NOTE | 2019-03-07 19:19 | NUR ---
CORRINE Bulb suction emptied. 20 mL of sanguinous fluid drained.
--- NOTE | 2019-03-07 19:30 | NUR ---
Change of shift given to customer advisor RN. No distress noted.
--- NOTE | 2019-03-07 19:35 | NUR ---
Opening Shift Note Assumed care of patient, awake and alert. No S/S of distress/SOB. Noted 3 incisions on abdomen with CORRINE drain on the lower abdomen, serosanguinous output, binder on. Instructed on the use of IS, patient verbalized understanding. Discussed on POC and to call for assist PRN, call light within reach, bed in low position, will continue to monitor for changes Q1hr and PRN.
[2019-03-07 22:00] VITALS: BP 101/72
[2019-03-07] MEDS: TEMAZEPAM 15 MG CAP PO PRN (22:06)
[2019-03-08] MEDS: LORazepam 0.5 MG TAB PO PRN (01:41)
[2019-03-08] MEDS: HYDROcodone-ACET 7.5/325MG TAB PO PRN ×2 (01:41→10:26)
[2019-03-08 05:54] VITALS: BP 125/71
[2019-03-08] MEDS: LEVOTHYROXINE SODIUM 25 MCG TAB PO SCH (06:02)
[2019-03-08] MEDS: ACCU-CHEK COMFORT CURVE STRIP VI SCH ×2 (06:03→11:30)
[2019-03-08] MEDS: InsuLIN REG 1unit/0.01ml Soln (100units/ml) SC SCH ×2 (06:03→11:30)
--- NOTE | 2019-03-08 06:28 | NUR ---
Drained 30 ml of serosanguinous output from CORRINE
[2019-03-08] MEDS: MORPHINE SULF INJ 2 MG/ML SYRINGE 1ML IV PRN (07:38)
[2019-03-08 09:00] VITALS: BP 115/79
[2019-03-08] MEDS: cefTRIAXone 1GM/50ML D5W 50 ML IV SCH (10:25)
[2019-03-08] MEDS: LACTULOSE 20Gm/30ML SOLN PO SCH (10:25)
[2019-03-08] MEDS: D5W/SOD CHL 0.45% 1,000 ML IV SCH (12:10)
--- NOTE | 2019-03-08 12:10 | NUR ---
Patient stated she has been eating regular food since last night. Patient denies s/s of distress, abdominal pain, or cramping. Bowel sounds normoactive in all four quadrants. Patient is passing gas. Per MD, patient can receive regular diet and be discharged home.
[2019-03-08 13:00] VITALS: BP 120/81
--- NOTE | 2019-03-08 14:45 | NUR ---
Spoke with Dr. Chapman. Per , [facility] consult for home health. Patient is to receive home health for CORRINE drain care.
--- NOTE | 2019-03-08 14:46 | NUR ---
Per Dr. Chapman, discharge does not need to be held for home health arrangement. Patient may be discharged without home health arranged.
--- NOTE | 2019-03-08 15:17 | NUR ---
Dr. Chapman spoke with Dr. [facility]. Appointment was made on 03/19/19. Per Dr. Chapman, patient can now follow-up on 03/19/19 instead of Monday.
[2019-03-08 15:25] VITALS: BP 120/81
--- NOTE | 2019-03-08 16:20 | NUR ---
Patient provided education on CORRINE and incision care. Patient returned demonstration and emptied CRORINE drain independently. 20 mL of sanguinous fluid drained. Incision care performed as ordered by Dr. Downey: clean wounds, cover with gauze, and tegaderm. Per MD, have patient follow-up on 03/19/19.
--- NOTE | 2019-03-08 16:40 | NUR ---
Discharge instructions given as ordered. Encourage to follow up with PMD as instructed. All questions and concerns addressed. Patient verbalized understanding. Medication reconciliation form completed and copy given to patient. Patient denies home medications held in Pharmacy. IV removed with catheter intact, pressure dressing applied Patient taken to vehicle via wheelchair with all personal belongings, accompanied by staff and family member. No distress noted at time of departure. Patient verbalized understanding to call health social work professor if they do not hear from home health within 48 hours.
--- NOTE | 2019-03-08 16:59 | NUR ---
D/C planning Per consult for home health [facility]. Contacted and faxed medical records to [facility] [place] [facility] [place]. Per Isis from [facility] ph: ( [phone]) Fax: ) pt has been accepted and will be seen tomorrow Monday03/09/19. Informed PONCE Bruno. Faxed medical records to [facility] Ph: ) Fax: ) for authorization and left Mikal a message regarding authorization I will follow up on Monday. Addendum: 03/08/19 at 1703 by MANDEEP HAMMOND Amended: Links added. Addendum: 03/08/19 at 1714 by MANDEEP HAMMOND Informed PONCE Sneed.
[2019-03-13] MEDS ORDERED: ATOR10TA52 PO (01:02)
[2019-03-13] MEDS ORDERED: INSUINJ18 SC (01:02)
[2019-03-13] MEDS ORDERED: GLIP5TAB12 PO (01:02)
[2019-03-13] MEDS ORDERED: INSLANTI SC (01:02)
== END 2019-03-08 16:40 | disposition home health service (06) | DRG 263 ==
LOC: ER 13:22 → OVERFLOW 13:23 → CENTRAL 23:39
PROVIDERS: ADMIT Nurse Practitioner Family; ATTEND Internal Medicine
PROC: 0FT44ZZ Resection of Gallbladder, Percutaneous Endoscopic Approach (ICD-10-PCS; principal; 2019-03-07 13:34)
DX: K80.00 Calculus of gallbladder with acute cholecystitis without obstruction (principal); E11.649 Type 2 diabetes mellitus with hypoglycemia without coma; E11.22 Type 2 diabetes mellitus with diabetic chronic kidney disease; N17.9 Acute kidney failure, unspecified; I95.9 Hypotension, unspecified; I12.0 Hypertensive chronic kidney disease with stage 5 chronic kidney disease or end stage renal disease; N18.5 Chronic kidney disease, stage 5; F11.20 Opioid dependence, uncomplicated; E66.01 Morbid (severe) obesity due to excess calories; E03.9 Hypothyroidism, unspecified; E78.5 Hyperlipidemia, unspecified; R91.1 Solitary pulmonary nodule; K21.9 Gastro-esophageal reflux disease without esophagitis; E78.00 Pure hypercholesterolemia, unspecified; M54.9 Dorsalgia, unspecified; F17.210 Nicotine dependence, cigarettes, uncomplicated; I25.10 Atherosclerotic heart disease of native coronary artery without angina pectoris; Z79.84 Long term (current) use of oral hypoglycemic drugs; Z83.3 Family history of diabetes mellitus; Z68.41 Body mass index [BMI] 40.0-44.9, adult
CPT/HCPCS: 36415; 71046; 71250; 74176; 76705; 78226; 80048; 80053; 81001; 82247; 82550; 82962; 83735; 83880; 84484; 84702; 85025; 85610; 85730; 86787; 86850; 86900; 86901; 93005; G0378; J0131; J0330; J0690; J0696; J1100; J1815; J1885; J2250; J2405; J2704

== ENCOUNTER 2019-07-28 13:42 | Emergency (ER) | payer MEDICAID ==
[~2019-07-28] VITALS: Ht 157.5 cm; Wt 115.7 kg
[~2019-07-28 13:42] MED LIST changes: +ATOR10TA52 PO; -BACL10TA; +GLIP5TAB12 PO; -GLYB3TAB3; +INSLANTI SC; +INSUINJ18 SC; -LORA2TAB10 PO
[2019-07-28 13:53] VITALS: BP 112/72
== END 2019-07-28 17:51 | disposition left against medical advice (07) ==
LOC: ER 13:44
DX: R21 Rash and other nonspecific skin eruption (principal); Z53.21 Procedure and treatment not carried out due to patient leaving prior to being seen by health care provider

== ENCOUNTER 2020-04-28 15:27 | Emergency (ER) | payer MEDICAID ==
[~2020-04-28] VITALS: Ht 157.5 cm; Wt 106.6 kg
[2020-04-28 16:12] VITALS: BP 134/88
== END 2020-04-28 17:15 | disposition left against medical advice (07) ==
LOC: ER 15:27
DX: R21 Rash and other nonspecific skin eruption (principal); Z53.21 Procedure and treatment not carried out due to patient leaving prior to being seen by health care provider
CPT/HCPCS: 82962

== ENCOUNTER 2021-01-24 16:11 | Emergency (ER) | payer MEDICAID ==
[~2021-01-24] VITALS: Ht 154.9 cm; Wt 113.4 kg
[2021-01-24 17:03] VITALS: BP 115/73
[2021-01-24] MEDS ORDERED: LIDOCAINE 1% HCL (LOCAL ANESTH.) INJ 20ML MDV IJ ONE (18:00)
[2021-01-24] MEDS ORDERED: cefTRIAXone SOD 1,000 MG VL IM ONE (18:00)
== END 2021-01-24 18:07 | disposition home or self-care (01) ==
LOC: ER 16:11
DX: B37.2 Candidiasis of skin and nail (principal); L08.9 Local infection of the skin and subcutaneous tissue, unspecified; E11.22 Type 2 diabetes mellitus with diabetic chronic kidney disease; I12.9 Hypertensive chronic kidney disease with stage 1 through stage 4 chronic kidney disease, or unspecified chronic kidney disease; N18.9 Chronic kidney disease, unspecified; E78.5 Hyperlipidemia, unspecified; F17.210 Nicotine dependence, cigarettes, uncomplicated; Z90.49 Acquired absence of other specified parts of digestive tract; Z79.4 Long term (current) use of insulin; Z79.2 Long term (current) use of antibiotics; Z79.899 Other long term (current) drug therapy
CPT/HCPCS: 96372; 99283; J0696; J2001

== ENCOUNTER 2021-05-20 00:02 | Emergency (ER) | payer MEDICAID ==
[~2021-05-20] VITALS: Ht 157.5 cm; Wt 108.9 kg
[2021-05-20] MEDS ORDERED: DEXTROSE 50% SYRINGE 50 ML IV ONE (01:09)
[2021-05-20] MEDS ORDERED: DEXTROSE (50%) 50ML SYRG IV ONE (01:30)
[2021-05-20 02:51] LABS: Basophils # (auto) 0.1 10 ^3/uL (0-0.2); Basophils % (auto) 0.5 % (0.0-2.0); Eosinophils # (auto) 0 10 ^3/uL (0-0.8); Hematocrit 37.9 % (36.0-46.0); Hemoglobin 12.6 g/dL (12.2-16.2); Lymphocytes # (auto) 1.2 10 ^3/uL (0.4-5.4); Lymphocytes % (auto) 7.8 % (10.0-50.0); Mean Corpuscular Hemoglobin 31.3 pg (28.0-32.0); Mean Corpuscular Hgb Conc. 33.2 g/dL (32.0-36.0); Mean Corpuscular Volume 94.4 fL (80.0-100.0); Monocytes # (auto) 0.9 10 ^3/uL (0-1.3); Monocytes % (auto) 5.4 % (0.0-12.0); Neutrophils # (auto) 13.7 10 ^3/uL (1.6-8.6); Neutrophils % (auto) 86.3 % (37.0-80.0); Red Blood Cells 4.02 10^6/uL (4.0-5.20); Red Cell Distribution Width 14.5 % (11.8-14.3); White Blood Cell 15.9 10^3/uL (4.4-10.8)
[2021-05-20 03:12] LABS: Albumin 3.5 g/dL (3.4-5.0); Calcium 8.6 mg/dL (8.5-10.1); Potassium 3.8 mmol/L (3.5-5.1)
[2021-05-20 03:14] LABS: BUN/Creatinine Ratio 19.4
[2021-05-20 03:26] LABS: Bilirubin, Total 0.3 mg/dL (0.2-1.0); Total Protein 7.5 g/dL (6.4-8.2)
[2021-05-20 04:11] VITALS: BP 101/66
[2021-05-20] MEDS ORDERED: HYDROcodone-ACET 5/325MG TAB PO ONE (04:30)
== END 2021-05-20 05:17 | disposition home or self-care (01) ==
LOC: ER 00:02 → EDUNIT# 00:02 → EDBD 00:02 → ER 05:17
DX: E11.649 Type 2 diabetes mellitus with hypoglycemia without coma (principal); E11.22 Type 2 diabetes mellitus with diabetic chronic kidney disease; I12.9 Hypertensive chronic kidney disease with stage 1 through stage 4 chronic kidney disease, or unspecified chronic kidney disease; N18.9 Chronic kidney disease, unspecified; E78.5 Hyperlipidemia, unspecified; F17.210 Nicotine dependence, cigarettes, uncomplicated; Z98.51 Tubal ligation status; Z90.49 Acquired absence of other specified parts of digestive tract; Z20.822 Contact with and (suspected) exposure to COVID-19
CPT/HCPCS: 36415; 71045; 80053; 82962; 83036; 85025; 87426; 93005; 96374; 99285; J7042

== ENCOUNTER 2024-01-16 14:55 | Inpatient (IN) | payer MEDICAID ==
[~2024-01-16] VITALS: Ht 152.4 cm; Wt 109.0 kg
[~2024-01-16 14:55] MED LIST changes: +ACET-1080 PO; -GLIP5TAB12 PO; +GLIP5TAB21 PO
[2024-01-16 15:01] VITALS: PULSE 88; RESP 14; RESP 18; O2SAT 88
[2024-01-16] MEDS ORDERED: VANCOMYCIN PER PHARMACY 0 MG IV SCH (15:15)
[2024-01-16] MEDS: SODIUM CHLORIDE 0.9% 1,000 ML IV ONE (15:39)
[2024-01-16 15:49] LABS: Base Excess -2.4 mmol/L (-2.0-2.0)
[2024-01-16] MEDS: ALBUMIN 25% 100 ML IV ONE ×2 (15:55→19:33)
[2024-01-16] MEDS: PIPERACILLIN-TAZO 4.5GM 100 ML IV ONE (15:56)
[2024-01-16 16:15] LABS: Basophils # (auto) 0.1 10 ^3/uL (0-0.2); Basophils % (auto) 0.7 % (0.0-2.0); Eosinophils # (auto) 0.1 10 ^3/uL (0-0.8); Eosinophils % (auto) 0.4 % (0.0-7.0); Hematocrit 31.9 % (36.0-46.0); Hemoglobin 10.7 g/dL (12.2-16.2); Lymphocytes % (auto) 12.8 % (10.0-50.0); Mean Corpuscular Hemoglobin 30.4 pg (28.0-32.0); Mean Corpuscular Hgb Conc. 33.6 g/dL (32.0-36.0); Mean Corpuscular Volume 90.4 fL (80.0-100.0); Monocytes # (auto) 0.6 10 ^3/uL (0-1.3); Monocytes % (auto) 3.9 % (0.0-12.0); Neutrophils # (auto) 12.9 10 ^3/uL (1.6-8.6); Neutrophils % (auto) 82.2 % (37.0-80.0); Red Blood Cells 3.53 10^6/uL (4.0-5.20); Red Cell Distribution Width 16.9 % (11.8-14.3); White Blood Cell 15.7 10^3/uL (4.4-10.8)
[2024-01-16] MEDS: ACETAMINOPHEN 325 MG TAB PO ONE (16:15)
[2024-01-16 16:28] LABS: INR 1.04 (0.9-1.15); Partial Thromboplastin Time 22.9 SEC (24.5-34.5)
[2024-01-16 16:43] LABS: Alanine Aminotransferase 62 U/L (7-40); Albumin 4.2 g/dL (3.2-4.8); Alkaline Phosphatase 75 U/L (46-116); Anion Gap 16 (5-15); Aspartate Aminotransferase 50 U/L (13-40); BUN/Creatinine Ratio 19.4 (10.0-20.0); Bilirubin, Total 0.2 mg/dL (0.2-1.0); Blood Urea Nitrogen 35 mg/dL (9-23); Carbon Dioxide 21 mmol/L (20-30); Chloride 105 mmol/L (98-107); Glucose 153 mg/dL (74-106); Magnesium 1.5 mg/dL (1.6-2.6); Sodium 142 mmol/L (136-145)
[2024-01-16 17:07] LABS: Calcium 5.7 mg/dL (8.5-10.1); Lactic Acid w/Reflex 3.4 mmol/L (0.4-2.0); Potassium 7.7 mmol/L (3.5-5.1)
[2024-01-16 17:11] LABS: Urine Bacteria None Seen /hpf (None Seen)
[2024-01-16 17:30] LABS: Urine Blood Negative /uL (Negative); Urine Clarity Clear (Clear); Urine Color Yellow (Yellow); Urine Hyaline Cast FEW /lpf (0 - 2); Urine Protein, UAD 1+ (Negative); Urine Specific Gravity 1.024 (1.001-1.035); Urine Urobilinogen Normal (Negative); Urine WBC 6 /hpf (0 - 5)
[2024-01-16 17:35] LABS: Amphetamine Screen, Urine Neg (NEGATIVE)
[2024-01-16 17:36] LABS: Barbiturate Scree,Urine Neg (NEGATIVE); Benzodiazephine Screen, Urine Neg (NEGATIVE); Cannabinoid Screen, Urine Neg (NEGATIVE); Cocaine Screen, Urine Neg (NEGATIVE); Opiate Scree,Urine Pos (NEGATIVE); Phencyclidine Screen, Urine Neg (NEGATIVE)
[2024-01-16] MEDS: ALBUTEROL SULF 2.5 MG/0.5ML(0.5%) NEB SOLN NEB ONE (17:47)
[2024-01-16] MEDS: SODIUM CHLORIDE 0.9% 2,000 ML IV ONE (18:19)
[2024-01-16] MEDS: SODIUM CHLORIDE 0.9% 1,000 ML IVB ONE (18:19)
[2024-01-16] MEDS: CALCIUM GLUC 1,000mg/50ml-NS 50 ML IV ONE (18:35)
[2024-01-16] MEDS: VANCOMYCIN 1GM/200ML 200 ML IV SCH (18:51)
[2024-01-16] MEDS: SODIUM BICARB 8.4% 50Meq/50ml SYR INJ IV ONE (19:02)
[2024-01-16] MEDS: DEXTROSE (50%) 50ML SYRG IV ONE (19:15)
[2024-01-16] MEDS: SODIUM ZIRCONIUM CYCL 10 GM PAK PO SCH (19:15)
[2024-01-16] MEDS: InsuLIN REG 1unit/0.01ml Soln (100units/ml) IV ONE (19:16)
[2024-01-16 19:30] VITALS: PULSE 94; RESP 11; O2SAT 100
[2024-01-16] MEDS: MIDAZOLAM HCL 5 MG/ML-1ML VIAL IV ONE (19:42)
[2024-01-16] MEDS: PANTOPRAZOLE 80 MG in SODIUM CHL 0.9% 100 ML IV ONE (19:42)
[2024-01-16] MEDS ORDERED: ALBUTEROL SULF 2.5 MG/0.5ML(0.5%) NEB SOLN NEB PRN (23:45)
[2024-01-16] MEDS ORDERED: ONDANSETRON HCL 4 MG/2 ML VIAL IV PRN (23:45)
[2024-01-16] MEDS ORDERED: MORPHINE SULFATE INJ 2 MG/ml SYRG IV PRN (23:45)
[2024-01-16] MEDS ORDERED: ACETAMINOPHEN 325 MG TAB PO PRN (23:45)
[2024-01-16] MEDS ORDERED: NITROGLYCERIN 0.4 MG SL TAB SL PRN (23:45)
[2024-01-16 23:55] VITALS: BP 83/52; PULSE 95; RESP 15; TEMP 98; O2SAT 100
[2024-01-16] MEDS: CLINDAMYCIN 600MG IV 50 ML IV ONE (23:57)
[2024-01-16] MEDS: HYDROcodone-ACET 5/325MG TAB PO PRN (23:57)
[2024-01-16] MEDS: MAGNESIUM SULFATE 1GM/100ML 100 ML IV SCH (23:57)
[2024-01-17] VITALS (9 sets, daily range): BP systolic 91–121; BP diastolic 49–84; PULSE 74–88; RESP 11–28; TEMP 97.6–98.5; O2SAT 90–97
[2024-01-17 00:20] LABS: Chloride 104 mmol/L (98-107); Sodium 139 mmol/L (136-145)
[2024-01-17 00:21] LABS: Anion Gap 15 (5-15); Calcium 9.5 mg/dL (8.7-10.4); Carbon Dioxide 20 mmol/L (20-30)
[2024-01-17 00:26] LABS: BUN/Creatinine Ratio 16.6 (10.0-20.0); Blood Urea Nitrogen 32 mg/dL (9-23); Glucose 138 mg/dL (74-106)
[2024-01-17] MEDS: NOREPINEPHRINE 8 MG/250ML KIT 250 ML IV SCH (04:23)
[2024-01-17 05:06] LABS: Basophils # (auto) 0 10 ^3/uL (0-0.2); Basophils % (auto) 0.3 % (0.0-2.0); Eosinophils # (auto) 0 10 ^3/uL (0-0.8); Eosinophils % (auto) 0.2 % (0.0-7.0); Hematocrit 23.3 % (36.0-46.0); Hemoglobin 7.7 g/dL (12.2-16.2); Lymphocytes # (auto) 1.6 10 ^3/uL (0.4-5.4); Lymphocytes % (auto) 10.4 % (10.0-50.0); Mean Corpuscular Hgb Conc. 33.1 g/dL (32.0-36.0); Mean Corpuscular Volume 90.8 fL (80.0-100.0); Monocytes # (auto) 0.5 10 ^3/uL (0-1.3); Monocytes % (auto) 3.2 % (0.0-12.0); Neutrophils # (auto) 13.2 10 ^3/uL (1.6-8.6); Neutrophils % (auto) 85.9 % (37.0-80.0); Red Blood Cells 2.57 10^6/uL (4.0-5.20); White Blood Cell 15.4 10^3/uL (4.4-10.8)
[2024-01-17 05:27] LABS: Alanine Aminotransferase 40 U/L (7-40); Albumin 3.9 g/dL (3.2-4.8); Alkaline Phosphatase 52 U/L (46-116); Anion Gap 7 (5-15); Aspartate Aminotransferase 35 U/L (13-40); BUN/Creatinine Ratio 16.3 (10.0-20.0); Bilirubin, Total 0.3 mg/dL (0.2-1.0); Blood Urea Nitrogen 24 mg/dL (9-23); Calcium 8.5 mg/dL (8.5-10.1); Carbon Dioxide 25 mmol/L (20-30); Chloride 105 mmol/L (98-107); Glucose 150 mg/dL (74-106); Potassium 3.7 mmol/L (3.5-5.1); Sodium 137 mmol/L (136-145); Total Protein 6.3 g/dL (5.7-8.2)
[2024-01-17] MEDS: CLINDAMYCIN 600MG IV 50 ML IV SCH (06:21)
[2024-01-17] MEDS ORDERED: MORP1TAB12 PO (11:53)
[2024-01-17] MEDS ORDERED: OXYC325T14 PO (12:12)
[2024-01-17] MEDS ORDERED: oxyCODONE HCL 5MG TAB PO PRN ×2 (12:15→12:30)
[2024-01-17] MEDS ORDERED: ACETAMINOPHEN 325 MG TAB PO PRN ×2 (12:15→12:30)
[2024-01-17] MEDS: MORPHINE SULF 15mg ER tab PO ONE (12:20)
[2024-01-17] MEDS: oxyCODONE HCL 5MG TAB PO PRN (12:33)
[2024-01-17] MEDS: ACETAMINOPHEN 325 MG TAB PO PRN (12:34)
[2024-01-17 12:44] LABS: Magnesium 1.8 mg/dL (1.6-2.6)
[2024-01-17] MEDS ORDERED: DEXTROSE (50%) 50ML SYRG IV PRN (13:00)
[2024-01-17] MEDS: NICOTINE 21MG/24 HR TOPICAL PATCH TD ONE (13:48)
[2024-01-17] MEDS: PIPERACILLIN-TAZOB 3.375GM 100 ML IV SCH (13:49)
[2024-01-17] MEDS: LEVOTHYROXINE SODIUM 50 MCG TAB PO ONE (13:59)
[2024-01-17 14:58] LABS: Free T3 < 0.2 pg/mL (2.3-4.2)
[2024-01-17 14:59] LABS: Folate (Folic Acid) 8.8 ng/mL (>5.38); Free T4 (Free Thyroxine) 0.17 ng/dL (0.89-1.76)
[2024-01-17 15:06] LABS: COVID19 ANTIGEN SOFIA FIA NEGATIVE (NEGATIVE)
[2024-01-17 15:07] LABS: Rapid Influenza A Negative (Negative); Rapid Influenza B Negative (Negative)
[2024-01-17] MEDS: CYANOCOBALAMIN (B-12) 1000 MCG/1 ML VIAL IM ONE (15:15)
[2024-01-17] MEDS: InsuLIN REG 1unit/0.01ml Soln (100units/ml) SC SCH (18:50)
[2024-01-17] MEDS: ACCU-CHEK COMFORT CURVE STRIP VI SCH (18:50)
[2024-01-18] VITALS (8 sets, daily range): BP systolic 87–107; BP diastolic 58–73; PULSE 72–105; RESP 16–21; TEMP 97.8–98.6; O2SAT 90–97
[2024-01-18] MEDS: LEVOTHYROXINE SODIUM 50 MCG TAB PO SCH (05:39)
[2024-01-18 06:37] LABS: Basophils # (auto) 0.1 10 ^3/uL (0-0.2); Basophils % (auto) 0.9 % (0.0-2.0); Eosinophils # (auto) 0.1 10 ^3/uL (0-0.8); Eosinophils % (auto) 1.1 % (0.0-7.0); Hematocrit 26.5 % (36.0-46.0); Hemoglobin 8.9 g/dL (12.2-16.2); Lymphocytes # (auto) 2.2 10 ^3/uL (0.4-5.4); Lymphocytes % (auto) 17.2 % (10.0-50.0); Mean Corpuscular Hemoglobin 30.5 pg (28.0-32.0); Mean Corpuscular Hgb Conc. 33.7 g/dL (32.0-36.0); Mean Corpuscular Volume 90.5 fL (80.0-100.0); Monocytes # (auto) 0.4 10 ^3/uL (0-1.3); Monocytes % (auto) 3.4 % (0.0-12.0); Neutrophils % (auto) 77.4 % (37.0-80.0); Red Blood Cells 2.92 10^6/uL (4.0-5.20); Red Cell Distribution Width 17.1 % (11.8-14.3); White Blood Cell 12.9 10^3/uL (4.4-10.8)
[2024-01-18 06:51] LABS: Alanine Aminotransferase 43 U/L (7-40); Albumin 3.8 g/dL (3.2-4.8); Alkaline Phosphatase 62 U/L (46-116); Anion Gap 5 (5-15); Aspartate Aminotransferase 36 U/L (13-40); BUN/Creatinine Ratio 11.6 (10.0-20.0); Bilirubin, Total 0.2 mg/dL (0.2-1.0); Blood Urea Nitrogen 14 mg/dL (9-23); Calcium 9.1 mg/dL (8.7-10.4); Carbon Dioxide 25 mmol/L (20-30); Chloride 103 mmol/L (98-107); Glucose 159 mg/dL (74-106); Magnesium 1.5 mg/dL (1.6-2.6); Potassium 4.4 mmol/L (3.5-5.1); Sodium 133 mmol/L (136-145); Total Protein 6.6 g/dL (5.7-8.2)
[2024-01-18 06:54] LABS: Free T3 0.66 pg/mL (2.3-4.2); Free T4 (Free Thyroxine) 0.26 ng/dL (0.89-1.76)
[2024-01-18] MEDS: CYANOCOBALAMIN 500 MCG TAB PO SCH (08:52)
[2024-01-18] MEDS: NICOTINE 21MG/24 HR TOPICAL PATCH TD SCH (08:53)
[2024-01-18] MEDS: MORPHINE SULF 15mg ER tab PO SCH (09:06)
[2024-01-18] MEDS: MAGNESIUM SULFATE 1GM/100ML 100 ML IV SCH (09:11)
[2024-01-18] MEDS ORDERED: MORPHINE SULF 15mg ER tab PO SCH (10:00)
[2024-01-18] MEDS: AMITRIPTYLINE HCL 25 MG TAB PO SCH (21:09)
[2024-01-19 01:00] VITALS: BP 98/58; PULSE 91; RESP 17; TEMP 98.1; O2SAT 91
[2024-01-19 05:00] VITALS: BP 101/70; PULSE 97; RESP 18; TEMP 97.8; O2SAT 90
[2024-01-19 06:55] LABS: Eosinophils # (auto) 0.1 10 ^3/uL (0-0.8); Hemoglobin 8.1 g/dL (12.2-16.2); Monocytes # (auto) 0.4 10 ^3/uL (0-1.3); Neutrophils # (auto) 6.4 10 ^3/uL (1.6-8.6); White Blood Cell 8.6 10^3/uL (4.4-10.8)
[2024-01-19 06:58] LABS: Basophils # (auto) 0 10 ^3/uL (0-0.2); Basophils % (auto) 0.5 % (0.0-2.0); Hematocrit 23.7 % (36.0-46.0); Lymphocytes # (auto) 1.7 10 ^3/uL (0.4-5.4); Lymphocytes % (auto) 19.9 % (10.0-50.0); Mean Corpuscular Hemoglobin 30.8 pg (28.0-32.0); Mean Corpuscular Hgb Conc. 34.3 g/dL (32.0-36.0); Mean Corpuscular Volume 89.7 fL (80.0-100.0); Monocytes % (auto) 4.9 % (0.0-12.0); Neutrophils % (auto) 73.7 % (37.0-80.0); Red Blood Cells 2.64 10^6/uL (4.0-5.20); Red Cell Distribution Width 16.8 % (11.8-14.3)
[2024-01-19 07:26] LABS: Alanine Aminotransferase 52 U/L (7-40); Albumin 3.7 g/dL (3.2-4.8); Alkaline Phosphatase 71 U/L (46-116); Anion Gap 7 (5-15); Aspartate Aminotransferase 33 U/L (13-40); BUN/Creatinine Ratio 12.7 (10.0-20.0); Bilirubin, Total 0.2 mg/dL (0.2-1.0); Blood Urea Nitrogen 17 mg/dL (9-23); Carbon Dioxide 27 mmol/L (20-30); Chloride 102 mmol/L (98-107); Glucose 181 mg/dL (74-106); Magnesium 1.7 mg/dL (1.6-2.6); Potassium 4.3 mmol/L (3.5-5.1); Sodium 136 mmol/L (136-145); Total Protein 6.5 g/dL (5.7-8.2)
[2024-01-19 09:00] VITALS: BP 98/61; PULSE 83; RESP 18; TEMP 97.4; O2SAT 95
[2024-01-19] MEDS ORDERED: AUG875T PO (12:27)
[2024-01-19] MEDS ORDERED: LEV50T PO (12:27)
[2024-01-19] MEDS ORDERED: CYAN500T3 PO (12:27)
[2024-01-19 13:00] VITALS: BP 93/60; PULSE 66; RESP 18; TEMP 98.2; O2SAT 93
[2024-01-19 14:49] VITALS: BP 93/60; PULSE 66; RESP 18; TEMP 98.2; O2SAT 93
[2024-01-19 17:00] VITALS: BP 124/68; PULSE 58; RESP 18; TEMP 97.4; O2SAT 99
== END 2024-01-19 15:48 | disposition home health service (06) | DRG 720 ==
LOC: EDBD 14:55 → ER 14:55 → TELE 23:40 → DOU IN ICU 01-17 05:25 → TELE-EAST 01-17 17:20
PROVIDERS: ADMIT Internal Medicine Pulmonary Disease; ATTEND Internal Medicine Pulmonary Disease
DX: A41.50 Gram-negative sepsis, unspecified (principal); J96.01 Acute respiratory failure with hypoxia; J69.0 Pneumonitis due to inhalation of food and vomit; G92.9 Unspecified toxic encephalopathy; N17.9 Acute kidney failure, unspecified; J15.69 Pneumonia due to other Gram-negative bacteria; J15.9 Unspecified bacterial pneumonia; T40.2X1A Poisoning by other opioids, accidental (unintentional), initial encounter; K92.2 Gastrointestinal hemorrhage, unspecified; D64.9 Anemia, unspecified; Z20.822 Contact with and (suspected) exposure to COVID-19; E11.22 Type 2 diabetes mellitus with diabetic chronic kidney disease; E78.5 Hyperlipidemia, unspecified; N18.9 Chronic kidney disease, unspecified; I12.9 Hypertensive chronic kidney disease with stage 1 through stage 4 chronic kidney disease, or unspecified chronic kidney disease; E83.42 Hypomagnesemia; G89.4 Chronic pain syndrome; E03.9 Hypothyroidism, unspecified; E66.01 Morbid (severe) obesity due to excess calories; E53.8 Deficiency of other specified B group vitamins; Z68.42 Body mass index [BMI] 45.0-49.9, adult; Z98.51 Tubal ligation status; Y92.89 Other specified places as the place of occurrence of the external cause
CPT/HCPCS: 36415; 36600; 70450; 71045; 76775; 80048; 80053; 80061; 80307; 80320; 81001; 82306; 82607; 82728; 82746; 82805; 82962; 83036; 83540; 83550; 83605; 83735; 84100; 84439; 84443; 84481; 84484; 85025; 85610; 85730; 86850; 86900; 86901; 87040; 87081; 87086; 87426; 87804; 93005; 93306; 94640; 97163; 99291; C9113; G0378; J1815; J2543; J3490; P9047

== ENCOUNTER 2024-04-24 10:28 | Inpatient (IN) | payer MEDICAID ==
[~2024-04-24] VITALS: Ht 61 cm; Wt 89.2 kg
[~2024-04-24 10:28] MED LIST changes: +AUG875T PO; +CYAN500T3 PO; +LEVO-848 PO; -LEVO75TA47; +MORP1TAB12 PO; +OXYC325T14 PO
[2024-04-24 12:00] LABS: Basophils # (auto) 0.1 10 ^3/uL (0-0.2); Eosinophils # (auto) 0 10 ^3/uL (0-0.8); Eosinophils % (auto) 0.1 % (0.0-7.0); Hemoglobin 12.4 g/dL (12.2-16.2); Monocytes # (auto) 1.3 10 ^3/uL (0-1.3)
[2024-04-24 12:03] LABS: Basophils % (auto) 0.4 % (0.0-2.0); Hematocrit 36.1 % (36.0-46.0); Lymphocytes # (auto) 2.8 10 ^3/uL (0.4-5.4); Lymphocytes % (auto) 12.6 % (10.0-50.0); Mean Corpuscular Hemoglobin 31.1 pg (28.0-32.0); Mean Corpuscular Hgb Conc. 34.4 g/dL (32.0-36.0); Mean Corpuscular Volume 90.4 fL (80.0-100.0); Monocytes % (auto) 5.8 % (0.0-12.0); Neutrophils # (auto) 17.9 10 ^3/uL (1.6-8.6); Neutrophils % (auto) 81.1 % (37.0-80.0); Platelet Count (auto) 546 10^3/uL (140-450); Red Cell Distribution Width 15.9 % (11.8-14.3); White Blood Cell 22.1 10^3/uL (4.4-10.8)
[2024-04-24 12:11] LABS: Anion Gap 11 (5-15); Calcium 11.6 mg/dL (8.7-10.4); Carbon Dioxide 27 mmol/L (20-31); Chloride 99 mmol/L (98-107); Potassium 3.3 mmol/L (3.5-5.1); Sodium 137 mmol/L (136-145)
[2024-04-24] MEDS: ONDANSETRON HCL 4 MG/2 ML VIAL IV ONE (12:15)
[2024-04-24] MEDS: MORPHINE SULFATE 4 MG/ML SYR/VIAL IV ONE (12:15)
[2024-04-24] MEDS: PIPERACILLIN-TAZO 4.5GM 100 ML IV ONE (12:15)
[2024-04-24 12:17] LABS: BUN/Creatinine Ratio 6.1 (10.0-20.0); Blood Urea Nitrogen 10 mg/dL (9-23); Glucose 271 mg/dL (74-106)
[2024-04-24 14:12] LABS: Lactic Acid w/Reflex 2.8 mmol/L (0.4-2.0)
[2024-04-24] MEDS: SODIUM CHLORIDE 0.9% 2,000 ML IV ONE (18:17)
[2024-04-24] MEDS: POTASSIUM CHL 20 Meq TABLET PO ONE (18:18)
[2024-04-24] MEDS: NICOTINE 21MG/24 HR TOPICAL PATCH TD ONE (18:20)
[2024-04-24 20:00] VITALS: PULSE 94; O2SAT 99
[2024-04-24] MEDS: HYDROcodone-ACET 10/325MG TAB PO ONE (20:26)
[2024-04-24] MEDS ORDERED: ONDANSETRON HCL 4 MG/2 ML VIAL IV PRN (22:00)
[2024-04-24] MEDS: ACCU-CHEK COMFORT CURVE STRIP VI SCH (22:00)
[2024-04-24] MEDS ORDERED: ACETAMINOPHEN 325 MG TAB PO PRN (22:00)
[2024-04-24] MEDS: InsuLIN REG 1unit/0.01ml Soln (100units/ml) SC SCH (22:00)
[2024-04-24] MEDS ORDERED: DEXTROSE (50%) 50ML SYRG IV PRN (22:00)
[2024-04-24] MEDS: CLINDAMYCIN 600MG IV 50 ML IV SCH (22:58)
[2024-04-25] VITALS (8 sets, daily range): BP systolic 91–121; BP diastolic 50–81; PULSE 67–111; RESP 16–20; TEMP 97.4–98.6; O2SAT 95–100
[2024-04-25] MEDS: HYDROcodone-ACET 7.5/325MG TAB PO PRN (01:20)
[2024-04-25] MEDS ORDERED: DULO20CA PO ×2 (03:14→03:24)
[2024-04-25] MEDS ORDERED: TIZA4CAP PO (03:24)
[2024-04-25] MEDS: LEVOTHYROXINE SODIUM 50 MCG TAB PO SCH (05:24)
[2024-04-25 06:46] LABS: Basophils # (auto) 0 10 ^3/uL (0-0.2); Basophils % (auto) 0.2 % (0.0-2.0); Eosinophils # (auto) 0.1 10 ^3/uL (0-0.8); Eosinophils % (auto) 0.5 % (0.0-7.0); Hematocrit 31.4 % (36.0-46.0); Hemoglobin 10.9 g/dL (12.2-16.2); Lymphocytes # (auto) 2.5 10 ^3/uL (0.4-5.4); Lymphocytes % (auto) 13.8 % (10.0-50.0); Mean Corpuscular Hemoglobin 31.7 pg (28.0-32.0); Mean Corpuscular Hgb Conc. 34.6 g/dL (32.0-36.0); Mean Corpuscular Volume 91.6 fL (80.0-100.0); Monocytes # (auto) 1.1 10 ^3/uL (0-1.3); Monocytes % (auto) 5.9 % (0.0-12.0); Neutrophils # (auto) 14.6 10 ^3/uL (1.6-8.6); Neutrophils % (auto) 79.6 % (37.0-80.0); Platelet Count (auto) 400 10^3/uL (140-450); Red Blood Cells 3.43 10^6/uL (4.0-5.20); Red Cell Distribution Width 15.9 % (11.8-14.3); White Blood Cell 18.3 10^3/uL (4.4-10.8)
[2024-04-25 06:51] LABS: Chloride 102 mmol/L (98-107); Potassium 3.8 mmol/L (3.5-5.1); Sodium 136 mmol/L (136-145)
[2024-04-25 06:52] LABS: Anion Gap 9 (5-15); Carbon Dioxide 25 mmol/L (20-31)
[2024-04-25 06:57] LABS: BUN/Creatinine Ratio 7.7 (10.0-20.0); Blood Urea Nitrogen 14 mg/dL (9-23); Glucose 182 mg/dL (74-106)
[2024-04-25] MEDS: MORPHINE SULF 15mg ER tab PO SCH (10:23)
[2024-04-25] MEDS: NYSTATIN TOPICAL POWDER 15GM TOP SCH (16:16)
[2024-04-25] MEDS: OXYCODONE W/ ACETAMINOPHEN 5/325MG TABLET PO PRN (20:22)
[2024-04-26] MEDS: TEMAZEPAM 15 MG CAP PO PRN (00:07)
[2024-04-26 01:17] VITALS: BP 117/82; PULSE 99; RESP 18; TEMP 98.2; O2SAT 97
== END 2024-04-26 03:30 | disposition left against medical advice (07) | DRG 720 ==
LOC: ER 10:28 → WEST WING 21:53 → OVERFLOW 21:53 → WEST WING 04-25 02:15
PROVIDERS: ADMIT Nurse Practitioner; ATTEND Student in an Organized Health Care Education/Training Program
DX: A41.9 Sepsis, unspecified organism (principal); N17.9 Acute kidney failure, unspecified; L03.311 Cellulitis of abdominal wall; Z68.45 Body mass index [BMI] 70 or greater, adult; E11.22 Type 2 diabetes mellitus with diabetic chronic kidney disease; E66.01 Morbid (severe) obesity due to excess calories; G89.29 Other chronic pain; E78.5 Hyperlipidemia, unspecified; I12.9 Hypertensive chronic kidney disease with stage 1 through stage 4 chronic kidney disease, or unspecified chronic kidney disease; N18.9 Chronic kidney disease, unspecified; F17.210 Nicotine dependence, cigarettes, uncomplicated; L30.4 Erythema intertrigo; Z53.29 Procedure and treatment not carried out because of patient's decision for other reasons; Z90.49 Acquired absence of other specified parts of digestive tract; Z98.51 Tubal ligation status
CPT/HCPCS: 36415; 80048; 82962; 83605; 85025; 87040; 87077; 87186; 87205; 96365; 96366; G0378; J1815; J2405; J2543; J3490